=== PATIENT | female | born 1985 | race African-American/Black ===

== ENCOUNTER 2021-09-26 10:58 | Outpatient (REF) | payer OTHER, SELFPAY ==
--- NOTE | ~2021-09-26 | XR_ITS ---
EXAMINATION: RIGHT HAND AND WRIST CLINICAL INFORMATION: Sprain right wrist COMPARISON: None TECHNIQUE: 5 views of the right hand and wrist FINDINGS: There is an oblique fracture through the midportion of the right fifth metacarpal with approximately 2 mm of dorsal displacement of distal fracture fragment and some mild volar angulation. There is associated soft tissue swelling. No significant abnormality of the right breast is seen. XR/XR hand wrist RT IMPRESSION: Right fifth metacarpal fracture.
== END 2021-09-26 10:59 | disposition home or self-care (01) ==
LOC: HO.XRAY 10:58
PROVIDERS: PCP Internal Medicine; Visit Provider Physician Assistant
DX: S63.501A Unspecified sprain of right wrist, initial encounter (principal)
CPT/HCPCS: 73110; 73130

== ENCOUNTER → 2021-09-29 12:31 | Outpatient (BNVA) | payer OTHER, SELFPAY | PROVIDERS: PCP Internal Medicine; Visit Provider Orthopaedic Surgery | DX: S62.326A Displaced fracture of shaft of fifth metacarpal bone, right hand, initial encounter for closed fracture (principal) | CPT/HCPCS: 99202 ==

== ENCOUNTER 2021-10-27 09:33 | Outpatient (REF) | payer OTHER, SELFPAY ==
--- NOTE | ~2021-10-27 | XR_ITS ---
EXAMINATION: XR HAND, RIGHT CLINICAL INFORMATION: Fracture COMPARISON: Previous x-ray September 2021 TECHNIQUE: PA, lateral, and oblique views of the right hand. FINDINGS: There is a healing fracture of the shaft of the right fifth metacarpal bone with increased bony callus formation. Alignment appears unchanged. No other fracture is seen. Joint spaces are normal. Soft tissues are normal. XR/XR hand RT min 3V IMPRESSION: Healing right fifth metacarpal fracture.
== END 2021-10-27 09:34 | disposition home or self-care (01) ==
LOC: HO.HOSX 09:33
PROVIDERS: Visit Provider Orthopaedic Surgery
DX: S62.326D Displaced fracture of shaft of fifth metacarpal bone, right hand, subsequent encounter for fracture with routine healing (principal); V49.9XXD Car occupant (driver) (passenger) injured in unspecified traffic accident, subsequent encounter
CPT/HCPCS: 73130; 99212

== ENCOUNTER 2021-11-04 16:29 | Outpatient (REF) | payer OTHER, SELFPAY ==
--- NOTE | ~2021-11-04 | CT_ITS ---
EXAMINATION: CT HEAD WITHOUT CONTRAST CLINICAL INFORMATION: Disorientation COMPARISON: None TECHNIQUE: Contiguous axial imaging was performed from the skull base to vertex without intravenous administration of contrast. This CT examination was performed using dose optimization techniques as appropriate, variously including the following: *Automated exposure control *Adjustment of mA and/or kV according to patient size (this includes techniques or standardized protocols for targeted exams where dose is matched to indication/reason for exam; i.e. extremities or head) *Use of iterative reconstruction technique DLP: 777 mGy-cm FINDINGS: There is no evidence of acute intracranial hemorrhage or territorial infarction. No abnormal mass effect or midline shift is seen. Dorman to white matter differentiation is well preserved. No extra-axial fluid collections are identified. The ventricles are normal in size. There is no abnormal attenuation within the brain parenchyma. The osseous structures and soft tissues are normal. The mastoid air cells and visualized portions of the paranasal sinuses are well aerated. CT/CT head/brain wo con IMPRESSION: No acute intracranial process seen.
== END 2021-11-04 16:30 | disposition home or self-care (01) ==
LOC: HO.CT 16:29
PROVIDERS: PCP Internal Medicine; Visit Provider Internal Medicine
DX: R41.0 Disorientation, unspecified (principal)
CPT/HCPCS: 70450

== ENCOUNTER 2021-12-08 15:30 | Outpatient (RCR) | payer OTHER, SELFPAY ==
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
== END 2022-01-25 14:18 | disposition home or self-care (01) ==
LOC: HO.OT 15:30
PROVIDERS: PCP Physician Assistant; Visit Provider Orthopaedic Surgery
DX: S62.326D Displaced fracture of shaft of fifth metacarpal bone, right hand, subsequent encounter for fracture with routine healing (principal)
CPT/HCPCS: 29125; 29130; 97110; 97165; 97760

== ENCOUNTER 2022-02-17 12:00 | Outpatient (RCR) | payer OTHER, SELFPAY ==
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
--- NOTE | 2022-03-15 15:52 | MHC.PT.DC ---
[facility] [place] Office [place] Office [place] Office [address] Jason Clarke [address] [phone] F: [phone] F: [phone] F: [phone] F: [phone] Physical Therapy Discharge Report Diagnosis: low back pain, unspecified Date of Surgery: N/A Date of Evaluation: 01/20/22 Date of Discharge: 03/15/22 Treatments to Date: 2 Cancellations to Date: 1 No Shows to Date: 3 Discharge Status: Visit Non-compliance Discharge Summary: Pt was seen for PT from 01/20/22-02/17/22. She has had 3 no-show appointments since SOC including her last scheduled appointment. Pt is being D/C from skilled PT per [facility] attendance policy and visit non-compliance. Pt current level of function unknown at this time. Electronically signed by: Mary Petty, PT, DPT Please sign and return to therapist. Thank you for your referral.
== END 2022-03-15 15:52 | disposition home or self-care (01) ==
LOC: HO.PT 12:00
PROVIDERS: PCP Physician Assistant; Visit Provider Physician Assistant
DX: M54.50 Low back pain, unspecified (principal)
CPT/HCPCS: 97110; 97162

== ENCOUNTER 2022-08-02 10:57 | Outpatient (REF) | payer OTHER, SELFPAY ==
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
== END 2022-08-02 10:58 | disposition home or self-care (01) ==
LOC: HO.XRAY 10:57
PROVIDERS: Absent Provider Physician Assistant; PCP Physician Assistant; Visit Provider Anesthesiology
DX: M89.8X1 Other specified disorders of bone, shoulder (principal); M54.6 Pain in thoracic spine; M79.18 Myalgia, other site
CPT/HCPCS: 72072; 73010; 99202

== ENCOUNTER → 2022-09-22 09:39 | Outpatient (BNVA) | payer OTHER, SELFPAY | PROVIDERS: PCP Physician Assistant; Visit Provider Anesthesiology | DX: M79.18 Myalgia, other site (principal); M54.6 Pain in thoracic spine | CPT/HCPCS: 20552; 99212; J3301 ==

== ENCOUNTER 2022-09-23 14:00 | Outpatient (RCR) | payer OTHER, SELFPAY ==
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
--- NOTE | 2022-10-11 08:47 | MHC.PT.DC ---
[facility] [place] Office [place] Office [place] Office [address] Jason Clarke [address] [phone] F: [phone] F: [phone] F: [phone] F: [phone] Physical Therapy Discharge Report Diagnosis: Low back pain, unspecified Date of Surgery: N/A Date of Evaluation: 06/07/22 Date of Discharge: 10/11/22 Treatments to Date: 8 Cancellations to Date: 7 No Shows to Date: 0 Discharge Status: Visit Non-compliance Discharge Summary: Pt was seen for PT from 06/07/22-09/23/22. Pt has had fair attendance since SOC. She consistently showed up late to appointments and had 7 cancellations since SOC. Unable to progress pt throughout PT POC as she did not consistently attend. Pt is being D/C from PT for visit non-compliance. Pt current level of function unknown at this time. Electronically signed by: Mary Petty, PT, DPT Please sign and return to therapist. Thank you for your referral.
== END 2022-10-11 08:47 | disposition home or self-care (01) ==
LOC: HO.PT 14:00
PROVIDERS: PCP Physician Assistant; Visit Provider Nurse Practitioner Family
DX: M54.50 Low back pain, unspecified (principal)
CPT/HCPCS: 97110; 97161

== ENCOUNTER 2022-11-16 11:02 | Outpatient (REF) | payer OTHER, SELFPAY | END 2022-11-16 11:03 | disposition home or self-care (01) | LOC: HO.HOSX 11:02 | PROVIDERS: Visit Provider Orthopaedic Surgery | DX: Z13.89 Encounter for screening for other disorder (principal) ==

== ENCOUNTER 2022-12-02 13:01 | Outpatient (AMB) | payer OTHER, SELFPAY ==
--- NOTE | 2022-12-02 13:02 | MHC.PC.OV ---
Vital Signs 12/02/22 13:04 Height 5 ft 6 in Weight 149 lb 8 oz BMI 24.1 BP 130/80 Blood Pressure Location Lt brachial Position Sitting Pulse 70 Pulse Source Pulse Oximeter Pulse Oximetry (%) 100 Intake Visit Reasons: Annual PE Intake Note: pt is here for annual exam Rn Digestive Required: No Accompanied by: Self / Same As Patient Allergies No Known Allergies Allergy (Verified 12/02/22 13:57) Medication List - Last Reconciled 12/02/22 by Adelso Aponte PA-C buspirone 10 mg PO BID 30 days cyclobenzaprine 5 mg PO BEDTIME PRN ibuprofen 800 mg PO Q8H PRN 10 days trazodone 100 mg PO BEDTIME PRN 90 days Tobacco use date assessed: 12/02/22 Dental Screening Dental Screen Date: 12/02/22 Did you have a dental visit in the last 12 months?: Yes Did you have a dental problem in the last 6 months where you did not have access to dental care?: No Was dental information given to patient?: Patient has dentist HPI Annual PE HPI Details Patient is a 37-year-old female here today for routine annual physical. Patient's past medical history significant for cervical and lumbar spine pain. Is followed by pain specialist and is getting cortisone injections to which she feels is not helpful. She does use cyclobenzaprine 5-10 mg with decent relief. .. Concerns--> reports she has been dealing with more depression as of lately. Has been taking BuSpar for anxiety only which has been helpful though would like to transition to something to help both her anxiety and depression. He is asking to see a psychiatrist. . 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 Gianfranco Callahan, Cari Yang, Fer Benz and colleagues, with an educational lester from [employer]. Review of Systems Const Denies body aches, Denies chills, Denies excessive sweating, Denies fatigue, Denies fever(s) and Denies headache(s) Eyes Denies blurry vision ENT Denies dysphagia, Denies vertigo, Denies dizziness, Denies headache(s), Denies hearing loss and Denies tinnitus Card Denies chest pain, Denies chest pain with activity, Denies syncope, Denies irregular heart rhythm and Denies dyspnea Resp Denies chest congestion, Denies cough, Denies hemoptysis, Denies dyspnea and Denies wheezing GI Denies abdominal pain, Denies melena, Denies hematochezia, Denies coffee ground emesis, Denies dysphagia, Denies diarrhea, Denies nausea and Denies vomiting Denies urinary frequency, Denies dysuria, Denies urinary hesitancy and Denies urinary urgency Musc Reports back pain, Reports arthralgias, Denies limited range of motion, Denies muscle cramps and Denies muscle weakness Skin/Breast Denies rash and Denies skin ulcer Neuro Denies Abnormal speech present, Denies confusion, Denies vertigo, Denies dizziness, Denies syncope, Denies headache(s), Denies memory loss and Denies seizure-like activity Psych Reports anxiety, Denies confusion, Reports depression, Denies memory loss, Denies panic attacks and Denies paranoia Endo Denies excessive sweating, Denies fatigue, Denies flushing, Denies polydipsia and Denies polyuria Aller/Immun Denies wheezing Physical exam (Primary Care) Vital Signs: Last Vital Signs Pulse 70 12/02/22 13:04 BP 130/80 12/02/22 13:04 Pulse Ox 100 12/02/22 13:04 BMI result Body Mass Index 24.1 Tobacco/Smoking Status: Tobacco use Status Tobacco use date assessed 12/02/22 12/02/22 13:03 Patient Tobacco Use Status Never used Tobacco 12/02/22 14:01 e-Cigarette/Vaping Use Never Used 12/02/22 14:01 Thrive Assessment: Date of Thrive Assessment Date Thrive assessed 05/11/22 12/02/22 13:03 Const General: cooperative, comfortable, no acute distress, alert and awake; No confusion Orientation/consciousness: oriented to person, oriented to place, patient oriented x3 and No confusion HENMT Head: Yes normocephalic Ears: external ears normal and TM's normal bilaterally Face and sinus: No sinus tenderness Mouth: Normal oral and palatal mucosa present and tongue normal Teeth and gingiva: dentition normal and gingiva normal Throat: Yes posterior oropharynx normal, Yes tonsils normal and Yes uvula midline Eyes Conjunctivae: conjunctivae normal Sclerae: sclerae normal Pupils: Equal, round and reactive pupils present EOM: EOMs intact bilaterally Direct Ophthalmoscopy: No no photophobia Neck Neck: Yes no lymphadenopathy, No tender and Yes no JVD Thyroid: Thyroid normal Carotids: no bruits Chest Chest palpation & inspection: no tenderness Resp Effort & Inspection: normal respiratory effort, no audible wheezes, not labored and no stridor Auscultation: no crackles, no rales, no rhonchi and no wheezes Cardio Jugular venous distension: no JVD Rate: regular rate, not bradycardic and not tachycardic Rhythm: regular rhythm Bruits: no carotid bruits Peripheral pulses: Peripheral pulses 2+ throughout GI Inspection: Yes normal to inspection, No abdominal wall ecchymosis and No visible herniation Palpation (GI): Soft to palpation, nontender, no guarding, not rigid and No hepatosplenomegaly present Auscultation: normoactive bowel sounds General: Yes no CVA tenderness Back/Spine/Pelvis Back: no CVA tenderness and No back tenderness Cervical Spine: cervical ROM normal Thoracic/Lumbar Spine: thoracic and lumbar spine normal to inspection, straight leg raise negative bilaterally, No thoraco-lumbar ROM limited and No lumbar spinal tenderness Skin Lesions: no lesions Rashes: no rashes Wounds: no wounds Neuro General: oriented to person, oriented to place, patient oriented x3, CN's II-XI intact bilaterally and No confusion Cranial nerves: Yes Equal, round and reactive pupils present and Yes Normal accommodation reflex present Cognition (Neuro): normal cognition Speech: No Abnormal speech present Gait exam (Neuro): Normal gait present Motor exam (neuro): 5/5 motor strength present throughout Extrem Right upper extremity: full ROM; no cyanosis Left upper extremity: full ROM; no cyanosis Right lower extremity: no edema Left lower extremity: no edema Psych Appearance: grossly normal Mental Status: mental status grossly normal Affect: normal affect Attitude: cooperative Thought process: Normal thought process present Immunizations Boostrix Tdap Performing Provider: Adelso Aponte PA-C Administered by: Alfie Moran CMA on 12/02/22 14:36 Dose Route Admin Location Lot Number Expiration Date 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 Gas 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 0.5 mL IM Left Deltoid [id number] 02/02/25 [id number] Intervention Insights VIS Given Date VIS Provided VIS Publication Date 12/02/22 Single Vaccine 20 Eligibility Eligibility Date Funding Source Not [facility] Eligible 12/02/22 Private Assessment and Plan Assessment & Plan (1) Annual physical exam: Code(s): Z00.00 - Encounter for general adult medical examination without abnormal findings (2) MDD (major depressive disorder), recurrent episode, mild: Code(s): F33.0 - Major depressive disorder, recurrent, mild Plan: Patient reports she has been experiencing more depression as of late. She is willing to try incision to Zoloft 50 mg and discontinue BuSpar for the treatment of her depression and anxiety. She will try to set her up with a mental health therapist and eventually psychiatrist. (3) Lumbar spine pain: Code(s): M54.50 - Low back pain, unspecified Plan: Patient followed by pain specialist in getting cortisone injections. She reports NSAIDs and cyclobenzaprine has been helpful to reduce her pain somewhat. Orders: Orders Comprehensive [place]. Panel Fast Today Z13.1 - Encounter for screening for diabetes mellitus CT NG by PCR Today Z11.3 - Encounter for screening for infections with a predominantly sexual mode of transmission, Z20.2 - Contact with and (suspected) exposure to infections with a predominantly sexual mode of transmission HIV Ab/Ag Today Z11.3 - Encounter for screening for infections with a predominantly sexual mode of transmission Syphilis Screen Today Z11.3 - Encounter for screening for infections with a predominantly sexual mode of transmission TDaP Immunization Today Z13.1 - Encounter for screening for diabetes mellitus, Z23 - Encounter for immunization Medications: New sertraline (Zoloft) 50 mg PO DAILY 30 tabs 3RF F33.0 - Major depressive disorder, recurrent, mild On Hold buspirone Hold Comment: Doctor's Order 10 mg PO BID 30 days 60 tabs 3RF F41.9 - Anxiety disorder, unspecified Coding Level of Care Code Est Pt Prev Care [id number]([id number]) Diagnoses Annual physical exam Z00.00 MDD (major depressive disorder), recurrent episode, mild F33.0 Lumbar spine pain M54.50
[2022-12-02 13:04] VITALS: BP 130/80; PULSE 70; O2SAT 100; BMI 24.1
== END 2022-12-02 14:33 | disposition home or self-care (01) ==
PROVIDERS: PCP Physician Assistant; Visit Provider Physician Assistant
DX: Z00.00 Encounter for general adult medical examination without abnormal findings (principal); F33.0 Major depressive disorder, recurrent, mild; M54.50 Low back pain, unspecified; Z23 Encounter for immunization; Z13.1 Encounter for screening for diabetes mellitus
CPT/HCPCS: 90471; 90715; 99395

== ENCOUNTER 2022-12-14 04:55 | Outpatient (REF) | payer OTHER, SELFPAY ==
--- NOTE | ~2022-12-14 | XR_ITS ---
EXAMINATION: XR HAND, RIGHT CLINICAL INFORMATION: Pain in right hand, knee good lateral fifth metacarpal COMPARISON: 10/27/2021 TECHNIQUE: 4 views of the right hand. FINDINGS: Radiopaque marker placed by the technologist to indicate the area of concern as indicated by the patient adjacent to the proximal interphalangeal joint of the fifth digit. Redemonstration of healed fracture of the right fifth metacarpal. Moderate degenerative changes first carpometacarpal joint with joint space narrowing and hypertrophic change. No displaced fracture. XR/XR hand RT min 3V IMPRESSION: Redemonstration of healed fracture of the right fifth metacarpal. Moderate degenerative changes first carpometacarpal joint with joint space narrowing and hypertrophic change. No displaced fracture. Recommend follow-up imaging in 10-14 days if fracture is suspected.
== END 2022-12-14 04:56 | disposition home or self-care (01) ==
LOC: HO.HOSX 04:55
PROVIDERS: Visit Provider Orthopaedic Surgery
DX: S62.326A Displaced fracture of shaft of fifth metacarpal bone, right hand, initial encounter for closed fracture (principal); R20.0 Anesthesia of skin; R25.2 Cramp and spasm
CPT/HCPCS: 73130

== ENCOUNTER 2022-12-14 13:54 | Outpatient (AMB) | payer OTHER, SELFPAY ==
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
[2022-12-14 14:11] VITALS: BMI 24.2
== END 2022-12-14 15:20 | disposition home or self-care (01) ==
PROVIDERS: PCP Physician Assistant; Visit Provider Orthopaedic Surgery
DX: S62.326D Displaced fracture of shaft of fifth metacarpal bone, right hand, subsequent encounter for fracture with routine healing (principal); R20.0 Anesthesia of skin; R25.2 Cramp and spasm
CPT/HCPCS: 99213

== ENCOUNTER 2023-01-07 09:19 | Outpatient (REF) | payer OTHER, SELFPAY ==
--- NOTE | 2023-01-07 09:25 | EMG_ITS ---
Chief complaint: Right hand pain, history of right 5th metatarsal fracture 2021, denies numbness in fingertips Reason for referral: Evaluate for neuropathy versus radiculopathy Referred by: Dr. Hay Procedure done: Right upper extremity NCS/EMG Precautions and/or limitations: None The limb temperature was monitored continuously and remained between 32-36 degrees C during the performance of the NCS. Nerve Conduction Studies Anti Sensory Summary Table ?Stim Site NR Onset (ms) Norm Onset (ms) Peak (ms) Norm Peak (ms) O-P Amp (?V) Norm O-P Amp Site1 Site2 Delta-0 (ms) Dist (cm) Chucoh (m/s) Norm Chucho (m/s) Right Median Anti Sensory (2nd Digit) Wrist ? 2.4 3.1 <3.6 34.6 >10 Wrist 2nd Digit 2.4 14.0 58 Right Ulnar Anti Sensory (5th Digit) Wrist ? 2.3 2.8 <3.7 24.1 >15.0 Wrist 5th Digit 2.3 14.0 61 Motor Summary Table ?Stim Site NR Onset (ms) Norm Onset (ms) O-P Amp (mV) Norm O-P Amp iAmp (mV) Amp (1st) (%) Site1 Site2 Delta-0 (ms) Dist (cm) Chucho (m/s) Norm Chucho (m/s) Right Median Motor (Abd Poll Brev) Wrist ? 3.4 <3.9 10.2 >4.5 12.0 100.0 Elbow Wrist 4.0 24.0 60 >45 Elbow ? 7.4 10.1 11.8 99.0 Right Ulnar Motor (Abd Dig Minimi) Wrist ? 2.7 <3.0 9.5 >5 12.4 100.0 B Elbow Wrist 3.9 22.5 58 >45 B Elbow ? 6.6 10.1 13.7 106.3 A Elbow B Elbow 1.8 10.0 56 >45 A Elbow ? 8.4 9.9 13.5 104.2 Comparison Summary Table ?Stim Site NR Peak (ms) Norm Peak (ms) P-T Amp (?V) Site1 Site2 Delta-P (ms) Norm Delta (ms) Right Median/Radial Dig I Comparison (Digit 1 - 10cm) Median ? 2.4 <2.9 44.2 Median Radial 0.1 Radial ? 2.5 <2.8 12.7 EMG ?Side Muscle Nerve Root Ins Act Fibs Psw Amp Dur Poly Recrt Int Pat Comment Right 1stDorInt Ulnar C8-T1 Nml Nml Nml Nml Nml 0 Nml Complete Right FlexCarRad Median C6-7 Nml Nml Nml Nml Nml 0 Nml Complete Right Biceps Musculocut C5-6 Nml Nml Nml Nml Nml 0 Nml Complete Right Triceps Radial C6-7-8 Nml Nml Nml Nml Nml 0 Nml Complete Right Deltoid Axillary C5-6 Nml Nml Nml Nml Nml 0 Nml Complete Paraspinal EMG ?Side Muscle Nerve Root Ins Act Fibs Psw Comment Right Cervical Upper Rami Nml Nml Nml Right Cervical Mid Rami Nml Nml Nml Right Cervical Lower Rami Nml Nml Nml FINDINGS: All motor and sensory nerves tested showed normal latencies, amplitudes and conduction velocities. Concentric needle EMG was performed in selected muscles of the right upper extremity and cervical paraspinals. Study did not reveal signs of electric abnormalities as shown in the table below. IMPRESSION: 1. This is a normal study. 2. There is no electrodiagnostic evidence for median neuropathy, ulnar neuropathy, brachial plexopathy, or cervical radiculopathy. Thank you for your kind referral. Jessenia Zuniga MD, LAYLA Board Certified, [place] Board [employer] and Rehabilitation (ABPMR) Board Certified, [place] Board of Electrodiagnostic Medicine (ABEM) CODIN [id number] MTDD
== END 2023-01-07 09:20 | disposition home or self-care (01) ==
LOC: HO.NEURO 09:19
PROVIDERS: PCP Physician Assistant; Visit Provider Orthopaedic Surgery
DX: R20.0 Anesthesia of skin (principal); R20.2 Paresthesia of skin
CPT/HCPCS: 95886; 95909

== ENCOUNTER → 2023-01-07 09:25 | Outpatient (BNV) | payer OTHER, SELFPAY | PROVIDERS: PCP Physician Assistant; Visit Provider Physical Medicine & Rehabilitation | DX: G56.93 Unspecified mononeuropathy of bilateral upper limbs (principal) | CPT/HCPCS: 95886; 95909 ==

== ENCOUNTER 2023-02-16 09:59 | Outpatient (AMB) | payer OTHER, SELFPAY ==
[2023-02-16 10:14] VITALS: BMI 24.2
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
== END 2023-02-16 10:58 | disposition home or self-care (01) ==
PROVIDERS: PCP Physician Assistant; Visit Provider Orthopaedic Surgery
DX: S62.326D Displaced fracture of shaft of fifth metacarpal bone, right hand, subsequent encounter for fracture with routine healing (principal); R20.0 Anesthesia of skin; R25.2 Cramp and spasm
CPT/HCPCS: 99213

== ENCOUNTER → 2023-02-16 09:59 | Outpatient (BNVA) | payer OTHER, SELFPAY | PROVIDERS: PCP Physician Assistant; Visit Provider Orthopaedic Surgery ==

== ENCOUNTER 2023-02-24 11:13 | Outpatient (AMB) | payer OTHER, SELFPAY ==
[2023-02-24 11:34] VITALS: BP 130/76; PULSE 97; O2SAT 98; BMI 24.1
--- NOTE | 2023-02-24 11:34 | A.OFFPC_ITS ---
Vital Signs 02/24/23 11:34 Height 5 ft 6 in Weight 149 lb 6 oz BMI 24.1 BP 130/76 Blood Pressure Location Lt brachial Position Sitting Pulse 97 Pulse Source Pulse Oximeter Pulse Oximetry (%) 98 Oxygen Delivery Method Room Air Intake Visit Reasons: f/u MDD/ HUGO Intake Note: Patient is here to follow up on Anxiety and Depression. Tax Manager Required: No Accompanied by: Self / Same As Patient Allergies No Known Allergies Allergy (Verified 02/24/23 11:51) Medication List - Last Reconciled 02/24/23 by Adelso Aponte PA-C buspirone 10 mg PO BID 30 days cyclobenzaprine 5 mg PO BEDTIME PRN ibuprofen 800 mg PO Q8H PRN 10 days sertraline (Zoloft) 50 mg PO DAILY trazodone 100 mg PO BEDTIME PRN 90 days Tobacco use date assessed: 12/02/22 Dental Screening Dental Screen Date: 02/24/23 Did you have a dental visit in the last 12 months?: Yes Did you have a dental problem in the last 6 months where you did not have access to dental care?: No Was dental information given to patient?: Patient has dentist HPI f/u MDD/ HUGO HPI Details Patient is a 38-year-old female here today for follow-up visit. Patient's past medical history significant for cervical and lumbar spine pain. .. Patient depressive disorder/ generalized anxiety disorder: Was started on sertraline 50 mg and did notice an improvement in her overall mood. She has continued to use of BuSpar which has been effective for her anxiety.. She has been out of the medication over the last week and has noted decrease mood. She would like to continue SSRI therapy to help her with both her anxiety and depression. 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 1. Little interest or pleasure in doing things: more than half the days 2. Feeling down, depressed, or hopeless: more than half the days 3. Trouble falling or staying asleep, or sleeping too much: nearly every day 4. Feeling tired or having little energy: nearly every day 5. Poor appetite or overeating: nearly every day 6. Feeling bad about yourself - or that you are a failure or have let yourself or your family down: nearly every day 7. Trouble concentrating on things, such as reading the newspaper or watching television: nearly every day 8. Moving or speaking so slowly that other people could have noticed. Or the opposite - being so fidgety or restless that you have been moving around a lot more than usual: more than half the days 9. Thoughts that you would be better off or of hurting yourself in some way: several days Total score: 22 Depression Screening Interpretation: Positive Depression Screening Follow-up: Existing condition and In treatment Depression Screening Done: Yes 25151 - PHQ-9 Billing: Yes Source: Developed by Drs. Gianfranco Callahan, Cari Yang, Fer Benz and colleagues, with an educational lester from [employer]. Thrive Questionnaire Date Thrive assessed: 05/11/22 HUGO-7 AMB Questionnaire HUGO-7 Date HUGO - 7 assessed: 02/24/23 Feeling nervous, anxious, or on edge: 3 = Nearly every day Not being able to stop or control worryin = More than half the days Worrying too much about different things: 3 = Nearly every day Trouble relaxin = More than half the days Being so restless that it is hard to sit still: 2 = More than half the days Becoming easily annoyed or irritable: 2 = More than half the days Feeling afraid as if something awful might happen: 2 = More than half the days Total HUGO-7 score (0-4 normal; 5-9 mild; 10-14 moderate; 15-21 severe): 16 Source: Developed by Drs. Gianfranco Callahan, Cari Yang, Fer Benz and colleagues, with an educational lester from [employer]. HUGO-7 Assessment Billing HUGO-7 Assessment Tool: HUGO-7 Assessment 40125 Review of Systems Const Denies headache(s) Eyes Denies loss of vision ENT Denies vertigo, Denies dizziness, Denies headache(s) and Denies sore throat Card Denies chest pain, Denies leg edema and Denies lightheadedness Resp Denies cough, Denies hemoptysis and Denies wheezing GI Denies abdominal pain, Denies melena, Denies constipation, Denies diarrhea and Denies vomiting Denies urinary frequency, Denies dysuria and Denies urinary urgency Musc Denies arthralgias, Denies joint swelling, Denies numbness and Denies tingling Neuro Denies Abnormal speech present, Denies behavioral changes, Denies vertigo, Denies dizziness, Denies headache(s), Denies loss of vision, Denies memory loss, Denies numbness and Denies tingling Psych Denies anxiety, Denies behavioral changes, Denies depression, Denies memory loss and Denies panic attacks Madhu/Lymph Denies easy bleeding and Denies easy bruising Aller/Immun Denies wheezing Physical exam (Primary Care) Vital Signs: Last Vital Signs Pulse 97 02/24/23 11:34 BP 130/76 02/24/23 11:34 Pulse Ox 98 02/24/23 11:34 Oxygen Delivery Method Room Air 02/24/23 11:34 BMI result Body Mass Index 24.1 Tobacco/Smoking Status: Tobacco use Status Tobacco use date assessed 12/02/22 02/24/23 11:38 Patient Tobacco Use Status Never used Tobacco 02/24/23 11:38 e-Cigarette/Vaping Use Never Used 02/24/23 11:38 PHQ-9: PHQ-9 Score PHQ-9: Total score 22 02/24/23 11:55 Depression Screening Interpretation: Positive Depression Screening Follow-up: Existing condition and In treatment Thrive Assessment: Date of Thrive Assessment Date Thrive assessed 05/11/22 02/24/23 11:38 Const General: healthy appearing, no acute distress, alert and awake Nutritional Appearance: well nourished Orientation/consciousness: oriented to person, oriented to place and oriented to time HENMT Ears: TM's normal bilaterally General nose exam: Normal nasal mucous membranes and turbinates present Eyes Conjunctivae: conjunctivae normal Sclerae: sclerae normal Pupils: Equal, round and reactive pupils present Neck Neck: Yes no lymphadenopathy and Yes no JVD Thyroid: Thyroid normal Carotids: no bruits Resp Effort & Inspection: normal respiratory effort and not tachypneic Auscultation: no crackles, no rales, no rhonchi and no wheezes Cardio Rate: regular rate Rhythm: regular rhythm Heart sounds: no murmurs and normal S1 and S2 GI Palpation (GI): Soft to palpation, nontender, no hepatomegaly and no splenomegaly Auscultation: normal bowel sounds Skin General skin exam: no rashes or lesions noted and dry skin Neuro General: oriented to person, oriented to place and oriented to time Cranial nerves: Yes Equal, round and reactive pupils present Speech: No Abnormal speech present Gait exam (Neuro): Normal gait present Motor exam (neuro): no tremor noted Extrem Right upper extremity: full ROM Left upper extremity: full ROM Right lower extremity: full ROM; no edema Left lower extremity: full ROM; no edema Psych Mental Status: mental status grossly normal Speech and movement: Normal speech and movement present Affect: normal affect Attitude: cooperative Thought process: Normal thought process present Assessment and Plan Assessment & Plan (1) MDD (major depressive disorder), recurrent episode, mild: Code(s): F33.0 - Major depressive disorder, recurrent, mild Plan: She has noted that SSRI therapy has helped her with her depressive moods and her anxiety. She would like to continue 50 mg of sertraline. She is also continued BuSpar for her anxiety which has been effective for her anxiety. She is now speaking with a mental health therapist. Medications: Changed From sertraline (Zoloft) 50 mg PO DAILY 30 tabs 3RF F33.0 - Major depressive disorder, recurrent, mild To sertraline (Zoloft) 50 mg PO DAILY 90 days 90 tabs 1RF F33.0 - Major depressive disorder, recurrent, mild Refilled sertraline (Zoloft) 50 mg PO DAILY 90 days 90 tabs 1RF F33.0 - Major depressive disorder, recurrent, mild Resumed buspirone 10 mg PO BID 30 days 60 tabs 3RF F41.9 - Anxiety disorder, unspecified Coding Level of Care Code Est Pt Level 3 (36326) Diagnoses MDD (major depressive disorder), recurrent episode, mild F33.0 Additional Codes HUGO-7 Assessment Billing - HUGO-7 Assessment Tool: HUGO-7 Assessment 91632 ([id number])
== END 2023-02-24 12:05 | disposition home or self-care (01) ==
PROVIDERS: PCP Physician Assistant; Visit Provider Physician Assistant
DX: F33.0 Major depressive disorder, recurrent, mild (principal)
CPT/HCPCS: 96127; 99213

== ENCOUNTER 2023-06-30 11:09 | Outpatient (AMB) | payer OTHER, SELFPAY ==
--- NOTE | 2023-06-30 11:09 | A.OFFPC_ITS ---
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 Review of the notes patient sees Orthopedics for neck and back pain has been advised to see pain management night sweats 1 week , chest pain,no fevers, sore throat, no sob, no ear pain , PFSH Medical History Anxiety Surgical History No pertinent past surgical history Family History (Updated 12/02/22 @ 14:01 by Adelso Aponte PA-C) Father HTN (hypertension) Social History Housing: House Alcohol intake: current Alcohol intake frequency: holidays/special occasions only Patient Tobacco Use Status: Never used Tobacco e-Cigarette/Vaping Use: Never Used Second Hand Smoke Exposure: No Substance Use Type: Marijuana service: No Current occupational status: employed and student 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 How often do you have a drink containing alcohol?: Monthly or less 2. How many drinks containing alcohol do you have on a typical day when you are drinking?: 1 or 2 3. How often do you have six or more drinks on one occasion?: Never Total Score: 1 HUGO-7 AMB Questionnaire HUGO-7 Date HUGO - 7 assessed: 06/30/23 Source: Developed by Drs. Gianfranco Callahan, Cari Yang, Fer Benz and colleagues, with an educational lester from [employer]. Physical exam (Primary Care) Tobacco/Smoking Status: Tobacco use Status Tobacco use date assessed 06/30/23 06/30/23 11:10 Patient Tobacco Use Status Never used Tobacco 06/30/23 11:10 e-Cigarette/Vaping Use Never Used 06/30/23 11:10 Thrive Assessment: Date of Thrive Assessment Date Thrive assessed 06/30/23 06/30/23 11:10 Telehealth Telehealth Location of provider rendering services: practice address Location of patient: address on file Patient Identification confirmed using: Name, : Yes Telehealth method: voice only (android) Patient verbally consented to treatment: Yes Patient verbally consented to billing insurance company: Yes Patient informed of any privacy concerns related to visit: Yes Minutes spent on Phone/Video with Pt.: 15 Assessment and Plan Assessment & Plan (1) Cough: Code(s): R05.9 - Cough, unspecified Plan: Sent in antibiotic amoxicillin 875 mg twice a day for 7 days. Advised to increase oral fluids and call if not any better. Medications: New amoxicillin 875 mg PO BID 14 tabs 0RF R05.9 - Cough, unspecified Coding Level of Care Code Tele Est Pt Level 3 (17849) Diagnoses Cough R05.9
== END 2023-06-30 12:44 | disposition home or self-care (01) ==
LOC: HO.HMGH 11:09
PROVIDERS: PCP Physician Assistant; Visit Provider Internal Medicine
DX: R05.9 Cough, unspecified (principal)
CPT/HCPCS: 99213

== ENCOUNTER 2023-12-15 09:03 | Outpatient (AMB) | payer OTHER, SELFPAY ==
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
[2023-12-15 09:11] VITALS: BP 112/66; PULSE 84; O2SAT 98; BMI 27.1
== END 2023-12-15 09:38 | disposition home or self-care (01) ==
PROVIDERS: PCP Physician Assistant; Visit Provider Physician Assistant
DX: Z00.00 Encounter for general adult medical examination without abnormal findings (principal); F33.0 Major depressive disorder, recurrent, mild; M54.6 Pain in thoracic spine; Z13.1 Encounter for screening for diabetes mellitus; Z12.4 Encounter for screening for malignant neoplasm of cervix; N91.2 Amenorrhea, unspecified
CPT/HCPCS: 99395

== ENCOUNTER 2024-01-18 09:58 | Outpatient (REF) | payer OTHER, SELFPAY ==
--- NOTE | ~2024-01-18 | MR_ITS ---
EXAMINATION: MR THORACIC SPINE WITHOUT CONTRAST CLINICAL INFORMATION: Two-year history of thoracic spine pain with radiculopathy to the right flank. COMPARISON: Thoracic spine radiographs 08/02/2022. TECHNIQUE: MRI of the thoracic spine was obtained using routine sequences without contrast. FINDINGS: Alignment is normal. Vertebral body heights are preserved. No acute bone marrow signal changes. Intervertebral disc height and signal intensity is maintained at all levels. Annular contours are normal and there is no canal or neuroforaminal compromise. No cord compression or abnormal intramedullary signal changes. Limited visualization of the intrathoracic anatomy reveals no abnormal finding. Specifically no paraspinal soft tissue mass or collection. A well marginated benign-appearing cyst is visualized at the upper pole of the left kidney. MR/MR thoracic spine wo con IMPRESSION: Normal thoracic spine MRI. Electronically signed by: Gianfranco Staton MD 02/02/2024 03:43 PM EDT
[2024-01-18 11:36] LABS: Hematocrit 40.7 % (37.0-47.0); Hemoglobin 13.1 g/dl (12.0-16.0); Mean Corpuscular HGB Conc 32.2 g/dl (31.0-35.0); Mean Corpuscular Hemoglobin 29.1 pg (27.0-33.0); Mean Corpuscular Volume 90.4 fL (80.0-98.0); Mean Platelet Volume 9.3 fL (9.4-12.3); Platelet Count 472 X10*3/uL (160-400); Red Cell Distribution Width 14.7 % (11.0-16.0); White Blood Count 4.3 X10*3/uL (4.8-10.8)
[2024-01-18 12:22] LABS: Alanine Aminotransferase 16 U/L (0-31); Albumin Level 4.4 g/dL (3.5-5.0); Alkaline Phosphatase 57 U/L (39-117); Anion Gap 14 (12-20); Aspartate Amino Transferase 19 U/L (5-31); Bilirubin Total 1.1 mg/dL (0.0-1.0); Blood Urea Nitrogen 11 mg/dL (9-16); Calcium 10.1 mg/dL (8.4-10.2); Carbon Dioxide 27 mmol/L (22-29); Chloride 105 mmol/L (96-108); Estimated Glomerular Filt Rate > 60; Glucose Fasting 85 mg/dL (60-99); HCG Quantitative 28 mIU/mL; Potassium 4.3 mmol/L (3.3-5.1); Sodium 142 mmol/L (135-145)
== END 2024-01-18 09:59 | disposition home or self-care (01) ==
LOC: HO.MRI 09:58
PROVIDERS: PCP Physician Assistant; Visit Provider Physician Assistant
DX: Z13.1 Encounter for screening for diabetes mellitus (principal); M54.6 Pain in thoracic spine; N91.2 Amenorrhea, unspecified
CPT/HCPCS: 36415; 72146; 80053; 84702; 85027

== ENCOUNTER 2024-12-17 13:38 | Outpatient (AMB) | payer OTHER, SELFPAY ==
--- NOTE | 2024-12-17 14:01 | MHC.PC.OV ---
Vital Signs 12/17/24 14:03 Height 5 ft 6 in Weight 220 lb 6 oz BMI 35.6 BP 132/90 H Blood Pressure Location Lt brachial Position Sitting Pulse 72 Pulse Source Pulse Oximeter Temp 97.4 F Temp Source Temporal Artery Scan Pulse Oximetry (%) 98 Oxygen Delivery Method Room Air Intake Visit Reasons: ANNUAL Intake Note: Patient is here today for a physical. Facility Maintenance Helper Required: No Subway Train Driver: Not Required per policy Accompanied by: Self / Same As Patient Allergies No Known Allergies Allergy (Verified 12/17/24 14:16) Medication List - Last Reconciled 12/17/24 by Adelso Aponte PA-C acetaminophen 1,000 mg PO Q6H PRN aspirin 162 mg PO BEDTIME buspirone 10 mg PO BID 30 days ibuprofen 600 mg PO QID PRN nifedipine ER 30 mg PO DAILY Tobacco use date assessed: 12/17/24 Dental Screening Dental Screen Date: 12/17/24 Did you have a dental visit in the last 12 months?: Yes Did you have a dental problem in the last 6 months where you did not have access to dental care?: No Was dental information given to patient?: Patient has dentist HPI ANNUAL HPI Details Patient is a 39-year-old female here today for routine annual physical. Patient's past medical history significant for major depressive disorder, cervical and lumbar spine pain. Is followed by pain specialist and is getting cortisone injections. She has been doing physical therapy sessions which has been really helpful for reducing her pain. She does use cyclobenzaprine 5-10 mg with decent relief. .. anxiety: anxiety and depression are noted, with previous prescriptions for sertraline and buspirone, which were paused during . The patient plans to resume sertraline at a reduced dose. .. hypertension: The patient reports elevated blood pressure since her section at [facility], with a current reading of 132/90 mmHg. She started nifedipine recently and has a family history of hypertension. Ehs Manager: Needs PAP -will refer to ob gyn agian Vaccines: Up-to-date with tetanus vaccine, declines flu and COVID vaccines. 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 1. Little interest or pleasure in doing things: not at all 2. Feeling down, depressed, or hopeless: not at all 3. Trouble falling or staying asleep, or sleeping too much: not at all 4. Feeling tired or having little energy: not at all 5. Poor appetite or overeating: not at all 6. Feeling bad about yourself - or that you are a failure or have let yourself or your family down: not at all 7. Trouble concentrating on things, such as reading the newspaper or watching television: not at all 8. Moving or speaking so slowly that other people could have noticed. Or the opposite - being so fidgety or restless that you have been moving around a lot more than usual: not at all 9. Thoughts that you would be better off or of hurting yourself in some way: not at all Total score: 0 Depression Screening Interpretation: Negative Depression Screening Done: Yes 65560 - PHQ-9 Billing: Yes Source: Developed by Drs. Gianfranco Callahan, Cari Yang, Fer Benz and colleagues, with an educational lester from [employer]. Thrive Questionnaire Date Thrive assessed: 12/17/24 I am a: Patient What is your living situation today?: I have a steady place to live Within the past 12 months, did the food you bought not last and you didn't have the money to get more?: Never true Within the past 12 months, did you worry whether your food would run out before you got money to buy more?: Never true Do you have trouble paying for medicines?: No Do you have trouble getting transportation to medical appointments?: No Do you have trouble paying your heating and electricity bill?: No Do you have trouble taking care of your child, family member or friend?: No Do you have trouble with day-to-day activities such as bathing, preparing meals, shopping, managing finances, etc.?: No Are you currently unemployed and looking for a job?: No Are you interested in more education?: No Please select the resources that you would like help with: None Currently or been in a relationship where the following occur: No concerns reported THRIVE Score: 0 AUDIT C Alcohol Use Questionnaire (AUDIT-C) 1. How often do you have a drink containing alcohol?: Monthly or less 2. How many drinks containing alcohol do you have on a typical day when you are drinking?: 1 or 2 Total Score: 1 HUGO-7 AMB Questionnaire HUGO-7 Date HUGO - 7 assessed: 12/17/24 Feeling nervous, anxious, or on edge: 0 = Not at all Not being able to stop or control worryin = Not at all Worrying too much about different things: 0 = Not at all Trouble relaxin = Not at all Being so restless that it is hard to sit still: 0 = Not at all Becoming easily annoyed or irritable: 0 = Not at all Feeling afraid as if something awful might happen: 0 = Not at all Total HUGO-7 score (0-4 normal; 5-9 mild; 10-14 moderate; 15-21 severe): 0 Source: Developed by Drs. Gianfranco Callahan, Cari Yang, Fer Benz and colleagues, with an educational lester from [employer]. HUGO-7 Assessment Billing HUGO-7 Assessment Tool: HUGO-7 Assessment 10212 Review of Systems Const Denies body aches, Denies chills, Denies excessive sweating, Denies fatigue, Denies fever(s) and Denies headache(s) Eyes Denies blurry vision ENT Denies dysphagia, Denies vertigo, Denies dizziness, Denies headache(s), Denies hearing loss and Denies tinnitus Card Denies chest pain, Denies chest pain with activity, Denies syncope, Denies irregular heart rhythm and Denies dyspnea Resp Denies chest congestion, Denies cough, Denies hemoptysis, Denies dyspnea and Denies wheezing GI Denies abdominal pain, Denies melena, Denies hematochezia, Denies coffee ground emesis, Denies dysphagia, Denies diarrhea, Denies nausea and Denies vomiting Denies urinary frequency, Denies dysuria, Denies urinary hesitancy and Denies urinary urgency Musc Denies arthralgias, Denies limited range of motion, Denies muscle cramps and Denies muscle weakness Skin/Breast Denies rash and Denies skin ulcer Neuro Denies Abnormal speech present, Denies confusion, Denies vertigo, Denies dizziness, Denies syncope, Denies headache(s), Denies memory loss and Denies seizure-like activity Psych Denies anxiety, Denies confusion, Denies depression, Denies memory loss, Denies panic attacks and Denies paranoia Endo Denies excessive sweating, Denies fatigue, Denies flushing, Denies polydipsia and Denies polyuria Aller/Immun Denies wheezing Physical exam (Primary Care) Vital Signs: Last Vital Signs Temp 97.4 F 12/17/24 14:03 Pulse 72 12/17/24 14:03 BP 132/90 H 12/17/24 14:03 Pulse Ox 98 12/17/24 14:03 Oxygen Delivery Method Room Air 12/17/24 14:03 BMI result Body Mass Index 35.6 Tobacco/Smoking Status: Tobacco use Status Tobacco use date assessed 12/17/24 12/17/24 14:11 Patient Tobacco Use Status Never used Tobacco 12/17/24 14:11 e-Cigarette/Vaping Use Never Used 12/17/24 14:11 PHQ-9: PHQ-9 Score PHQ-9: Total score 0 12/17/24 14:30 Depression Screening Interpretation: Negative Thrive Assessment: Date of Thrive Assessment Date Thrive assessed 12/17/24 12/17/24 14:11 Currently or been in a relationship where the following occur: No concerns reported Const General: cooperative, comfortable, no acute distress, alert and awake; No confusion Orientation/consciousness: oriented to person, oriented to place, patient oriented x3 and No confusion HENMT Head: Yes normocephalic Ears: external ears normal and TM's normal bilaterally Face and sinus: No sinus tenderness Mouth: Normal oral and palatal mucosa present and tongue normal Teeth and gingiva: dentition normal and gingiva normal Throat: Yes posterior oropharynx normal, Yes tonsils normal and Yes uvula midline Eyes Conjunctivae: conjunctivae normal Sclerae: sclerae normal Pupils: Equal, round and reactive pupils present EOM: EOMs intact bilaterally Direct Ophthalmoscopy: No no photophobia Neck Neck: Yes no lymphadenopathy, No tender and Yes no JVD Thyroid: Thyroid normal Carotids: no bruits Chest Chest palpation & inspection: no tenderness Resp Effort & Inspection: normal respiratory effort, no audible wheezes, not labored and no stridor Auscultation: no crackles, no rales, no rhonchi and no wheezes Cardio Jugular venous distension: no JVD Rate: regular rate, not bradycardic and not tachycardic Rhythm: regular rhythm Bruits: no carotid bruits Peripheral pulses: Peripheral pulses 2+ throughout GI Inspection: Yes normal to inspection, No abdominal wall ecchymosis and No visible herniation Palpation (GI): Soft to palpation, nontender, no guarding, not rigid and No hepatosplenomegaly present Auscultation: normoactive bowel sounds General: Yes no CVA tenderness Back/Spine/Pelvis Back: no CVA tenderness and No back tenderness Cervical Spine: cervical ROM normal Thoracic/Lumbar Spine: thoracic and lumbar spine normal to inspection, straight leg raise negative bilaterally, No thoraco-lumbar ROM limited and No lumbar spinal tenderness Skin Lesions: no lesions Rashes: no rashes Wounds: no wounds Neuro General: oriented to person, oriented to place, patient oriented x3, CN's II-XI intact bilaterally and No confusion Cranial nerves: Yes Equal, round and reactive pupils present and Yes Normal accommodation reflex present Cognition (Neuro): normal cognition Speech: No Abnormal speech present Gait exam (Neuro): Normal gait present Motor exam (neuro): 5/5 motor strength present throughout Extrem Right upper extremity: full ROM; no cyanosis Left upper extremity: full ROM; no cyanosis Right lower extremity: no edema Left lower extremity: no edema Psych Appearance: grossly normal Mental Status: mental status grossly normal Affect: normal affect Attitude: cooperative Thought process: Normal thought process present Coding Level of Care Code Est Pt Prev Care 18-39y(00294) Diagnoses Annual physical exam Z00.00 hypertension O16.5 MDD (major depressive disorder), recurrent episode, mild F33.0 Anxiety F41.9 Additional Codes HUGO-7 Assessment Billing - HUGO-7 Assessment Tool: HUGO-7 Assessment 92835 ([id number]) PHQ-9 - 97736 - PHQ-9 Billing: Yes ([id number]) Assessment & Plan Assessment & Plan (1) Annual physical exam: Code(s): Z00.00 - Encounter for general adult medical examination without abnormal findings Category: Medical Plan: As per HPI (2) hypertension: Code(s): O16.5 - Unspecified maternal hypertension, complicating the puerperium Category: Medical Plan: The patient is managing essential hypertension with nifedipine, initiated recently, and is advised to monitor blood pressure at home. Follow-up is scheduled in two to three months to evaluate treatment efficacy. (3) MDD (major depressive disorder), recurrent episode, mild: Code(s): F33.0 - Major depressive disorder, recurrent, mild Category: Medical Plan: The patient plans to resume sertraline at a reduced dose of 50 mg to manage anxiety and depression. Monitoring for symptom improvement is recommended. (4) Anxiety: Code(s): F41.9 - Anxiety disorder, unspecified Category: Medical Plan: As above Patient will restart sertraline 50 mg for her anxiety and depression. Orders: Orders MM screening mammo BI 12/17/24 F33.0 - Major depressive disorder, recurrent, mild, Z12.31 - Encounter for screening mammogram for malignant neoplasm of breast Comprehensive [place]. Panel Fast 12/17/24 Z13.1 - Encounter for screening for diabetes mellitus Complete Blood Count no Diff 12/17/24 Z13.1 - Encounter for screening for diabetes mellitus Referrals MANAGER MARKET INTELLIGENCE Referral Z12.4 - Encounter for screening for malignant neoplasm of cervix Medications: New sertraline (Zoloft) 50 mg PO DAILY 90 tabs 1RF 90 days F33.0 - Major depressive disorder, recurrent, mild
[2024-12-17 14:03] VITALS: BP 132/90; PULSE 72; TEMP 36.3; O2SAT 98; BMI 35.6
--- OUTSIDE RECORDS SUMMARY | 2024-12-17 14:55 | XMS_ITS | Clinical Summary ---
Author Organization [facility] Address [address] [place] [phone] Phone Care Team Providers Care Senior Graphic Designer Name Role Phone Pcp, Unknown Primary Care Provider Unavailabl e Social History Tobacco Use Types Packs/Day Years Used Date Smoking Tobacco: Never Assessed Education Answer Date Recorded Are you interested in more education? Not on tianna e 07/08/2023 Are you concerned about learning? Not on file 07/08/2023 No 07/08/2023 No 07/08/2023 Digital Access Answer Date Recorded No 07/08/2023 No 07/08/2023 Reliable internet access at home? Not on file 07/08/2023 Device with a working camera? Not on file Comments Unknown Sex and Gender Information Value Date Recorded Sex Assigned at Not on file Legal Sex Female 10:27 PM EDT Gender Identity Not on file Sexual Orientation Not on file Plan of Treatment Not on file Medical Devices Not on file Insurance [facility] ACO ACO A[employer] [place] [employer] Care Teams Senior Graphic Designer Relationship Specialty Start Date End Date Pcp, Unknown PCP - General 02/10/23 Additional Source Comments The information contained in this document represents components of the legal health record. It is not the complete legal health record.[facility]
--- OUTSIDE RECORDS SUMMARY | 2024-12-17 14:55 | XMS_ITS | Encounter Summary ---
Author Organization [facility] Address [address] [facility] [address] [place] [phone] Phone Care Team Providers Care Bench Press Operator Name Role Phone Pcp, Unknown Primary Care Provider Unavailabl e Encounter Details Date Type Department Care Team (Late st Contact Info) Description 07/08/2023 Ancillary Orders [facility], X-Ray - [address] [place] [address] Mary Trammell PA [address] [place] [address] [email or web address] Pain in thoracic spine (Primary Dx) Social History Tobacco Use Types Packs/Day Years [...] on file Sexual Orientation Not on file documented as of this encounter Plan of Treatment Not on file documented as of this encounter Results * XR CERVICAL SPINE 4-5 VIEWS (07/08/2023 12:35 PM EDT) Anatomical Region Laterality Modality C-spine Computed Radiogr aphy 07/13/2023 1:38 AM EDT Impressions 07/13/2023 1:39 AM EDT Reversal of the cervical lordosis, may reflect patient positioning or paraspinal muscle spasm. Mild to moderate cervical spine degenerative change most pronounced C3-C6 Narrative 07/13/2023 1:39 AM EDT XR CERVICAL SPINE 4-5 VIEWS REQUESTED INDICATION: Pain COMPARISON: None FINDINGS: ALIGNMENT: Reversal of the cervical lordosis. Open-mouth view demonstrates normal alignment of the C1-C2 lateral masses. VERTEBRAE: Vertebral body heights preserved. DISCS: Disc height loss and endplate sclerosis and marginal osteophytes at all levels, most pronounced at C3-4 and C5-6. FACETS: Mild facet and uncovertebral arthropathy. Oblique neuroforaminal views demonstrate mild C5-6 neuroforaminal stenosis on the left. PARASPINAL SOFT TISSUES: Within normal limits. Procedure Note Concha Johnson MD - 07/13/2023 XR CERVICAL SPINE 4-5 VIEWS REQUESTED INDICATION: Pain COMPARISON: None FINDINGS: ALIGNMENT: Reversal of the cervical lordosis. Open-mouth view demonstratesnormal alignment of the C1-C2 lateral masses. VERTEBRAE: Vertebral body heights preserved. DISCS: Disc height loss and endplate sclerosis and marginal osteophytes atall levels, most pronounced at C3-4 and C5-6. FACETS: Mild facet and uncovertebral arthropathy. Oblique neuroforaminalviews demonstrate mild C5-6 neuroforaminal stenosis on the left. PARASPINAL SOFT TISSUES: Within normal limits. IMPRESSION: Reversal of the cervical lordosis, may reflect patient positioning orparaspinal muscle spasm. Mild to moderate cervical spine degenerative change most pronouncedC3-C6 Mary HERNANDEZ IMG XR SPINE Final Result documented in this encounter Visit Diagnoses Diagnosis Pain in thoracic spine- Primary Pain in thoracic spine documented in this encounter Care Teams Bench Press Operator Relationship Specialty Start Date End Date Pcp, Unknown PCP - General 02/10/23 documented as of this encounter Additional Source Comments The information contained in this document represents components of the legal health record. It is not the complete legal health record.[facility]
== END 2024-12-17 14:35 | disposition home or self-care (01) ==
PROVIDERS: PCP Physician Assistant; Visit Provider Physician Assistant
DX: Z00.00 Encounter for general adult medical examination without abnormal findings (principal); O16.5 Unspecified maternal hypertension, complicating the puerperium; F33.0 Major depressive disorder, recurrent, mild; F41.9 Anxiety disorder, unspecified

== ENCOUNTER → 2024-12-17 13:38 | Outpatient (BNVA) | payer OTHER, SELFPAY | PROVIDERS: PCP Physician Assistant; Visit Provider Physician Assistant | DX: Z00.00 Encounter for general adult medical examination without abnormal findings (principal); M54.2 Cervicalgia; M54.50 Low back pain, unspecified; O99.345 Other mental disorders complicating the puerperium; F41.9 Anxiety disorder, unspecified; O16.5 Unspecified maternal hypertension, complicating the puerperium; F33.0 Major depressive disorder, recurrent, mild | CPT/HCPCS: 96127 ==

== ENCOUNTER 2025-02-25 15:14 | Outpatient (REF) | payer OTHER, SELFPAY ==
--- OUTSIDE RECORDS SUMMARY | 2025-02-25 16:34 | XMS_ITS | Clinical Summary ---
Author Organization [facility] Address [address] [place] [phone] Phone Care Team Providers Care Mental Health Technician Name Role Phone Pcp, Unknown Primary Care [...] file Medical Devices Not on file Insurance [facility] ACO ACO A[employer] [facility] [place] [employer] Care Teams Mental Health Technician Relationship Specialty Start Date End Date Pcp, Unknown PCP - General 02/10/23 Additional Source Comments The information contained in this document represents components of the legal health record. It is not the complete legal health record.[facility]
--- OUTSIDE RECORDS SUMMARY | 2025-02-25 16:34 | XMS_ITS | Encounter Summary ---
Author Organization [facility] Address [address] [place] [address] [place] [phone] Phone Care Team Providers Care Mixed Signal Design Engineer Name Role Phone Pcp, Unknown Primary Care Provider Unavailabl e Encounter Details Date Type Department Care Team (Late st Contact Info) Description 07/08/2023 Ancillary Orders [facility], X-Ray - [address] [place] [address] Mary Trammell PA [address] [place] [address] [email or web address] Pain in thoracic spine (Primary Dx) Social [...] spine documented in this encounter Care Teams Mixed Signal Design Engineer Relationship Specialty Start Date End Date Pcp, Unknown PCP - General 02/10/23 documented as of this encounter Additional Source Comments The information contained in this document represents components of the legal health record. It is not the complete legal health record.[facility]
== END 2025-02-25 15:15 | disposition home or self-care (01) ==
LOC: HO.MAMMO 15:14
PROVIDERS: PCP Physician Assistant; Visit Provider Physician Assistant
DX: Z13.89 Encounter for screening for other disorder (principal)